=== PATIENT | female | born 1980 | race Caucasian/White ===

== ENCOUNTER 2017-11-22 07:09 | Day surgery (SDC) | payer BC ==
[~2017-11-22] VITALS: Ht 170.2 cm; Wt 85.7 kg
[~2017-11-22 07:09] MED LIST: ENDOCET 5-3251 EACH PO; FERROUS SULFAT325 MG PO; HYDROCODON-ACE1 EAC7 PO; IBUPROFEN800 MG PO; MOTRIN600 MG PO; MOTRIN800 MG PO; NORCO 5/3251 TABLET PO; ZYRTEC10 M3 PO
[2017-11-22 07:39] VITALS: BP 135/83
[2017-11-22 10:35] VITALS: BP 116/66
[2017-11-22 11:11] VITALS: BP 124/78
== END 2017-11-22 11:18 | disposition home or self-care (01) ==
LOC: SDC 07:09
PROC: 0U5B8ZZ Destruction of Endometrium, Via Natural or Artificial Opening Endoscopic (ICD-10-PCS; principal; 2017-11-22)
DX: N92.0 Excessive and frequent menstruation with regular cycle (principal); Z88.0 Allergy status to penicillin
CPT/HCPCS: J0131; J1100; J1885; J2250; J2405; J3010; Q0175